=== PATIENT | male | born 1990 | race Caucasian/White ===

== ENCOUNTER 2017-09-12 18:22 | Emergency (ER) | payer OTHER ==
[~2017-09-12] VITALS: Ht 172.7 cm; Wt 95.3 kg
[~2017-09-12 18:22] MED LIST: ACETAMINOPHEN-1 EAC1 PO; AMBIEN 5 MG TABL5 M1; AMITRIPTYLINE H10 M1 PO; AMOXICILLIN 50500 MG; ANASPAZ0.125 MG; AUGMENTIN 875875 MG PO; CARAFATE 1 GM TA1 G1; CIPROFLOXACIN500 M1 PO; CLEOCIN HCL300 MG PO; FENTANYL PATCH75 MCG; FLONASE 0.05%50 MCG NASAL; HYDROCODONE-AP1 EAC6 PO; LIORESAL 10 MG10 MG; MOBIC15 MG PO; PERCOCET 5-3251 EACH PO; PHENERGAN 25 MG25 M1 PO; PREDNISONE 20 M20 M1 PO; PROAIR HFA8.5 GM INH; PROTONIX40 M1 PO; PROTONIX40 M2 PO; PROZAC20 MG PO; REGLAN 10 MG TA10 MG PO; SEROQUEL 25 MG25 M2; TOPAMAX 100 MG100 MG; TRAMADOL 50 MG50 MG PO; WELLBUTRIN SR150 M1 PO; XANAX1 MG; ZANTAC 150MG T150 M1 PO; ZOFRAN ODT4 MG; ZOFRAN ODT4 MG PO
[2017-09-12] MEDS ORDERED: TAMIFLU75 MG PO (18:35)
[2017-09-12] MEDS ORDERED: ADDERALL 5 MG TA5 M1 PO (18:35)
[2017-09-12] MEDS ORDERED: CYMBALTA30 MG PO (18:35)
[2017-09-12] MEDS ORDERED: QUETIAPINE FUM100 MG PO (18:35)
[2017-09-12] MEDS ORDERED: LAMICTAL100 MG PO (18:35)
[2017-09-12] MEDS ORDERED: CYMBALTA60 MG PO (18:35)
[2017-09-12] MEDS ORDERED: FLOVENT HFA12 G1 INH (18:36)
[2017-09-12] MEDS ORDERED: DUONEB 2.5-0.5 M3 ML INH (18:36)
[2017-09-12] MEDS ORDERED: CIPROHEPTADINE (18:36)
[2017-09-12 19:22] LABS: ABSOLUTE BASOPHILS 0.1 thou/uL (0.0-0.2); ABSOLUTE EOSINOPHILS 0.1 thou/uL (0.0-0.7); ABSOLUTE LYMPHOCYTES 2.1 thou/uL (0.8-5.3); ABSOLUTE MONOCYTES 0.4 thou/uL (0.0-1.2); ABSOLUTE NEUTROPHILS 6.3 thou/uL (1.6-8.1); BASOPHILS 0.9 %; EOSINOPHILS 1.2 %; HEMATOCRIT 43.6 % (42.0-52.0); HEMOGLOBIN 14.3 gm/dL (14.0-18.0); LYMPHOCYTES 23.3 %; MCHC 32.8 g/dL (28.0-37.0); MCV 79.4 fL (80.0-100.0); MPV 7.7 fl. (7.2-11.1); NUCLEATED RBCS 0 /100WBC; PLATELET COUNT* 236 thou/uL (150-400); POLYS 69.6 %; RDW-CV 19.3 % (10.5-14.5)
[2017-09-12 19:35] LABS: ANION GAP 5 mmol/L (7-16); BUN 12 mg/dL (7-18); CHLORIDE 102 mmol/L (98-107); CO2 31 mmol/L (21-32); GLUCOSE 97 mg/dL (70-99); SODIUM 138 mmol/L (136-145)
[2017-09-12 19:47] LABS: ALBUMIN 4.2 g/dL (3.4-5.0); ALKALINE PHOSPHATASE 181 U/L (46-116); LIPASE 119 U/L (73-393); SGOT 18 U/L (15-37); SGPT 62 U/L (30-65); TOTAL BILIRUBIN 0.4 mg/dL (<0.1-1.0); TOTAL PROTEIN 7.6 g/dL (6.4-8.2); TROPONIN-I LEVEL <0.06 ng/mL (<0.06)
[2017-09-12] MEDS ORDERED: IBUPROFEN 800800 MG PO (22:57)
[2017-09-12 23:35] VITALS: BP 111/78
--- NOTE | 2017-09-14 12:37 | EKG ---
[place] [address] ELECTROCARDIOGRAM REPORT Name: NATIVIDAD MOSHER Room: [facility]#: [id number] Admission: 09/12/17 Attend Phys: Discharge: 09/12/17 Date of : [birth year] Report #: [id number] THIS REPORT FOR: //name// 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
== END 2017-09-12 23:39 | disposition home or self-care (01) ==
LOC: M.ERS 18:22
PROVIDERS: Physician Assistant
DX: M79.601 Pain in right arm (principal); I80.8 Phlebitis and thrombophlebitis of other sites; F32.9 Major depressive disorder, single episode, unspecified; F41.9 Anxiety disorder, unspecified; K21.9 Gastro-esophageal reflux disease without esophagitis; Z90.49 Acquired absence of other specified parts of digestive tract; Z87.01 Personal history of pneumonia (recurrent); Z87.442 Personal history of urinary calculi; Z85.51 Personal history of malignant neoplasm of bladder; Z88.5 Allergy status to narcotic agent; Z88.8 Allergy status to other drugs, medicaments and biological substances

== ENCOUNTER 2017-12-30 13:24 | Emergency (ER) | payer OTHER ==
[~2017-12-30] VITALS: Ht 172.7 cm; Wt 95.3 kg
[~2017-12-30 13:24] MED LIST changes: +ADDERALL 5 MG TA5 M1 PO; +CIPROHEPTADINE; +CYMBALTA30 MG PO; +CYMBALTA60 MG PO; +DUONEB 2.5-0.5 M3 ML INH; +FLOVENT HFA12 G1 INH; +IBUPROFEN 800800 MG PO; +LAMICTAL100 MG PO; +QUETIAPINE FUM100 MG PO; +TAMIFLU75 MG PO; -XANAX1 MG; +XANAX1 MG PO
[2017-12-30] MEDS ORDERED: FLONASE 0.05%50 MCG NASAL (13:49)
[2017-12-30] MEDS ORDERED: XARELTO15 MG PO (13:50)
[2017-12-30 14:32] LABS: ABSOLUTE EOSINOPHILS 0.1 thou/uL (0.0-0.7); ABSOLUTE LYMPHOCYTES 0.7 thou/uL (0.8-5.3); ABSOLUTE MONOCYTES 0.5 thou/uL (0.0-1.2); ABSOLUTE NEUTROPHILS 3.3 thou/uL (1.6-8.1); BASOPHILS 0.6 %; HEMATOCRIT 36.9 % (42.0-52.0); HEMOGLOBIN 12.2 gm/dL (14.0-18.0); LYMPHOCYTES 15.1 %; MCH 26.4 pg (26.0-34.0); MCHC 33.2 g/dL (28.0-37.0); MCV 79.6 fL (80.0-100.0); MONOCYTES 11.1 %; MPV 6.9 fl. (7.2-11.1); NUCLEATED RBCS 0 /100WBC; PLATELET COUNT* 261 thou/uL (150-400); POLYS 71.2 %; RBC 4.63 mil/uL (4.50-6.00); RDW-CV 16.2 % (10.5-14.5); WBC 4.7 thou/uL (4.0-11.0)
[2017-12-30 14:41] LABS: ANION GAP 9 mmol/L (7-16); BUN 13 mg/dL (7-18); CALCIUM 8.7 mg/dL (8.5-10.1); CHLORIDE 101 mmol/L (98-107); CO2 27 mmol/L (21-32); CREATININE 0.9 mg/dL (0.6-1.3); GLUCOSE 93 mg/dL (70-99); POTASSIUM 4.1 mmol/L (3.5-5.1); SODIUM 137 mmol/L (136-145)
[2017-12-30 14:49] LABS: ALBUMIN 3.8 g/dL (3.4-5.0); ALKALINE PHOSPHATASE 179 U/L (46-116); SGOT 34 U/L (15-37); SGPT 64 U/L (30-65); TOTAL BILIRUBIN 0.3 mg/dL (<0.1-1.0); TOTAL PROTEIN 6.9 g/dL (6.4-8.2); TROPONIN-I LEVEL <0.06 ng/mL (<0.06)
[2017-12-30] MEDS ORDERED: ZOFRAN4 MG PO (15:28)
[2017-12-30] MEDS ORDERED: PERCOCET 5-3251 EACH PO (15:28)
[2017-12-30 15:50] VITALS: BP 121/72
--- NOTE | 2018-01-01 18:37 | EKG ---
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
== END 2017-12-30 15:50 | disposition home or self-care (01) ==
LOC: M.ERS 13:24
PROVIDERS: Nurse Practitioner Family
DX: R07.9 Chest pain, unspecified (principal); R50.9 Fever, unspecified; M79.1 Myalgia; R51 Headache; R11.2 Nausea with vomiting, unspecified; F32.9 Major depressive disorder, single episode, unspecified; F41.9 Anxiety disorder, unspecified; K21.9 Gastro-esophageal reflux disease without esophagitis; Z87.442 Personal history of urinary calculi; Z90.49 Acquired absence of other specified parts of digestive tract; Z86.718 Personal history of other venous thrombosis and embolism; Z85.51 Personal history of malignant neoplasm of bladder; Z88.8 Allergy status to other drugs, medicaments and biological substances; Z88.5 Allergy status to narcotic agent

== ENCOUNTER 2018-01-02 16:15 | Emergency (ER) | payer OTHER ==
[~2018-01-02] VITALS: Ht 172.7 cm; Wt 97.1 kg
[~2018-01-02 16:15] MED LIST changes: +XARELTO15 MG PO; +ZOFRAN4 MG PO
[2018-01-02 16:32] LABS: URINE BILIRUBIN NEGATIVE (Negative); URINE BLOOD NEGATIVE (Negative); URINE CLARITY CLEAR; URINE COLOR YELLOW; URINE GLUCOSE-RANDOM NEGATIVE (Negative); URINE KETONES TRACE (Negative); URINE LEUKOCYTES-REFLEX NEGATIVE (Negative); URINE NITRITE-REFLEX NEGATIVE (Negative); URINE PROTEIN NEGATIVE (Negative); URINE UROBILINOGEN 0.2 E.U./dl (0.2-1.0)
[2018-01-02 17:39] LABS: ABSOLUTE EOSINOPHILS 0.1 thou/uL (0.0-0.7); ABSOLUTE LYMPHOCYTES 1.2 thou/uL (0.8-5.3); ABSOLUTE MONOCYTES 0.5 thou/uL (0.0-1.2); ABSOLUTE NEUTROPHILS 2.6 thou/uL (1.6-8.1); BASOPHILS 0.6 %; EOSINOPHILS 2.2 %; HEMATOCRIT 38.9 % (42.0-52.0); HEMOGLOBIN 12.6 gm/dL (14.0-18.0); LYMPHOCYTES 26.6 %; MCHC 32.4 g/dL (28.0-37.0); MCV 80.2 fL (80.0-100.0); MONOCYTES 11.3 %; MPV 7.5 fl. (7.2-11.1); NUCLEATED RBCS 0 /100WBC; PLATELET COUNT* 264 thou/uL (150-400); POLYS 59.3 %; RBC 4.85 mil/uL (4.50-6.00); RDW-CV 16.5 % (10.5-14.5); WBC 4.4 thou/uL (4.0-11.0)
[2018-01-02 17:47] LABS: CALCIUM 8.9 mg/dL (8.5-10.1); CREATININE 0.8 mg/dL (0.6-1.3); POTASSIUM 4.3 mmol/L (3.5-5.1)
[2018-01-02 17:52] LABS: ALBUMIN 3.8 g/dL (3.4-5.0); TOTAL BILIRUBIN 0.3 mg/dL (<0.1-1.0); TOTAL PROTEIN 7.3 g/dL (6.4-8.2)
[2018-01-02 18:28] LABS: AMP/METHAMP POSITIVE (Negative); BARBITURATES Negative (Negative); BENZODIAZEPINES POSITIVE (Negative); COCAINE Negative (Negative); METHADONE Negative (Negative); OPIATES Negative (Negative); PCP Negative (Negative); THC Negative (Negative)
[2018-01-02] MEDS ORDERED: ZANAFLEX4 MG PO (18:41)
[2018-01-02 18:50] VITALS: BP 117/81
== END 2018-01-02 18:59 | disposition home or self-care (01) ==
LOC: M.ERS 16:15
PROVIDERS: Nurse Practitioner Family
DX: G89.29 Other chronic pain (principal); M54.9 Dorsalgia, unspecified; F32.9 Major depressive disorder, single episode, unspecified; F41.9 Anxiety disorder, unspecified; K21.9 Gastro-esophageal reflux disease without esophagitis; Z87.442 Personal history of urinary calculi; Z90.49 Acquired absence of other specified parts of digestive tract; Z88.8 Allergy status to other drugs, medicaments and biological substances; Z88.5 Allergy status to narcotic agent

== ENCOUNTER 2018-06-09 17:17 | Emergency (ER) | payer OTHER ==
[~2018-06-09] VITALS: Ht 172.7 cm; Wt 95.3 kg
[~2018-06-09 17:17] MED LIST changes: +ZANAFLEX4 MG PO
[2018-06-09] MEDS ORDERED: ZANAFLEX4 MG PO ×2 (17:34→20:03)
[2018-06-09] MEDS ORDERED: IRON325 PO (17:34)
[2018-06-09] MEDS ORDERED: ZYRTEC10 M5 PO (17:34)
[2018-06-09] MEDS ORDERED: XARELTO20 MG PO (17:34)
[2018-06-09] MEDS ORDERED: MULTI VITAMIN1 EACH PO (17:35)
[2018-06-09] MEDS ORDERED: VITAMIN D1000 UNI1 PO (17:35)
[2018-06-09] MEDS ORDERED: VITAMINC500 PO (17:35)
[2018-06-09] MEDS ORDERED: TOPAMAX 100 MG100 MG PO (17:35)
[2018-06-09] MEDS ORDERED: ZOFRAN ODT4 MG PO (17:36)
[2018-06-09] MEDS ORDERED: TORADOL 10 MG T10 MG PO (17:36)
[2018-06-09 18:22] LABS: ABSOLUTE BASOPHILS 0.1 thou/uL (0.0-0.2); ABSOLUTE LYMPHOCYTES 2.1 thou/uL (0.8-5.3); ABSOLUTE MONOCYTES 0.6 thou/uL (0.0-1.2); ABSOLUTE NEUTROPHILS 7.2 thou/uL (1.6-8.1); BASOPHILS 0.5 %; EOSINOPHILS 0.1 %; HEMATOCRIT 44.5 % (42.0-52.0); HEMOGLOBIN 14.9 gm/dL (14.0-18.0); LYMPHOCYTES 20.9 %; MCH 27.8 pg (26.0-34.0); MCHC 33.4 g/dL (28.0-37.0); MCV 83.1 fL (80.0-100.0); MONOCYTES 6.5 %; MPV 8.1 fl. (7.2-11.1); NUCLEATED RBCS 0 /100WBC; PLATELET COUNT* 254 thou/uL (150-400); RBC 5.35 mil/uL (4.50-6.00); RDW-CV 17.5 % (10.5-14.5)
[2018-06-09 18:28] LABS: APTT 29.8 Seconds (25.0-31.3); INR 1.1; PROTIME 11.1 Seconds (9.20-11.50)
[2018-06-09 18:32] LABS: URINE BILIRUBIN NEGATIVE (Negative); URINE BLOOD 2+ (Negative); URINE CLARITY CLEAR; URINE COLOR YELLOW; URINE GLUCOSE-RANDOM NEGATIVE (Negative); URINE KETONES NEGATIVE (Negative); URINE LEUKOCYTES-REFLEX NEGATIVE (Negative); URINE NITRITE-REFLEX NEGATIVE (Negative); URINE PROTEIN NEGATIVE (Negative); URINE SPECIFIC GRAVITY <= 1.005 (1.005-1.030); URINE UROBILINOGEN 0.2 E.U./dl (0.2-1.0)
[2018-06-09 18:43] LABS: ALBUMIN 4.1 g/dL (3.4-5.0); TOTAL BILIRUBIN 0.2 mg/dL (<0.1-1.0); TOTAL PROTEIN 7.5 g/dL (6.4-8.2)
[2018-06-09 18:51] LABS: SQUAMOUS 0-3 Few /LPF (0-3)
[2018-06-09 18:52] LABS: BACTERIA-REFLEX None Seen /HPF (None Seen); CASTS None Seen /LPF (None Seen); CRYSTALS None Seen /LPF (None Seen); URINE RBC 0-2 Rare /HPF (0-2); URINE WBC-REFLEX None Seen /HPF (0-5)
[2018-06-09 20:25] VITALS: BP 130/79
--- NOTE | 2018-06-10 12:16 | EKG ---
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
== END 2018-06-09 20:25 | disposition home or self-care (01) ==
LOC: M.ERS 17:17
PROVIDERS: Nurse Practitioner Family
DX: S20.212A Contusion of left front wall of thorax, initial encounter (principal); K52.9 Noninfective gastroenteritis and colitis, unspecified; F32.9 Major depressive disorder, single episode, unspecified; F41.9 Anxiety disorder, unspecified; K21.9 Gastro-esophageal reflux disease without esophagitis; Z87.442 Personal history of urinary calculi; Z90.49 Acquired absence of other specified parts of digestive tract; Z85.51 Personal history of malignant neoplasm of bladder; Z87.01 Personal history of pneumonia (recurrent); Z86.718 Personal history of other venous thrombosis and embolism; Z88.5 Allergy status to narcotic agent; Z88.8 Allergy status to other drugs, medicaments and biological substances; W17.89XA Other fall from one level to another, initial encounter; Y93.39 Activity, other involving climbing, rappelling and jumping off; Y92.89 Other specified places as the place of occurrence of the external cause; Y99.8 Other external cause status

== ENCOUNTER 2018-09-02 11:31 | Emergency (ER) | payer OTHER ==
[~2018-09-02] VITALS: Ht 172.7 cm; Wt 92.5 kg
[~2018-09-02 11:31] MED LIST changes: +IRON325 PO; +MULTI VITAMIN1 EACH PO; +TOPAMAX 100 MG100 MG PO; +TORADOL 10 MG T10 MG PO; +VITAMIN D1000 UNI1 PO; +VITAMINC500 PO; +XARELTO20 MG PO; +ZYRTEC10 M5 PO
[2018-09-02] MEDS ORDERED: TRAZODONE 150150 M1 PO (11:45)
[2018-09-02] MEDS ORDERED: PREDNISONE 10 M10 M1 PO (11:46)
[2018-09-02] MEDS ORDERED: PREDNISONE50 MG PO (13:00)
[2018-09-02] MEDS ORDERED: ZPAK PO (13:00)
[2018-09-02 13:13] VITALS: BP 125/91
== END 2018-09-02 13:14 | disposition home or self-care (01) ==
LOC: M.ERS 11:31
DX: J02.9 Acute pharyngitis, unspecified (principal); F32.9 Major depressive disorder, single episode, unspecified; F41.9 Anxiety disorder, unspecified; K21.9 Gastro-esophageal reflux disease without esophagitis; Z85.51 Personal history of malignant neoplasm of bladder; Z87.01 Personal history of pneumonia (recurrent); Z90.49 Acquired absence of other specified parts of digestive tract; Z88.5 Allergy status to narcotic agent; Z88.8 Allergy status to other drugs, medicaments and biological substances